=== PATIENT | female | born 1990 | race Two or more races ===

== ENCOUNTER 2024-10-24 11:11 | Emergency (ER) | payer OTHER ==
[~2024-10-24] VITALS: Ht 160 cm; Wt 52.6 kg
[2024-10-24] MEDS: IV NS 0.9% 1,000 ML BAG IV ONE (11:45)
[2024-10-24] MEDS ORDERED: LACTULOSE 10 G/15 ML UDC (PYXIS) ONE (11:46)
[2024-10-24] MEDS: LACTULOSE 10 G/15 ML UDC (PYXIS) PO ONE (11:46)
[2024-10-24 11:54] LABS: CALCIUM, SERUM 9.5 mg/dL (8.5-10.1); CREATININE 0.8 mg/dL (0.6-1.3); PLATELET COUNT (AUTO) 367 K/uL (150-450); RED BLOOD CELL COUNT(AUTO) 4.92 MIL/uL (4.0-5.2); RED CELL DISTRIBUTION WIDTH 19.2 % (11.5-15.0); SODIUM SERUM 136.0 mmol/L (136-145); UREA NITROGEN, BLOOD 10.0 mg/dL (7-18); WHITE BLOOD COUNT (AUTO) 6.3 K/uL (4.3-11.0)
[2024-10-24 12:00] LABS: ASPARTATE AMINOTRANSFERASE 22.0 U/L (15-37); TOTAL PROTEIN, SERUM 8.1 g/dL (6.4-8.2)
[2024-10-24 12:14] LABS: APPEARANCE,URINE CLEAR (CLEAR); BLOOD, URINE 3+ Ery/uL (NEGATIVE); LEUKOCYTE ESTERASE ,URINE 1+ (NEGATIVE); NITRITE, URINE NEGATIVE (NEGATIVE); UGLUCOSE NEGATIVE (NEGATIVE)
[2024-10-24 12:22] LABS: PREGNANCY TEST URINE QUAL NEGATIVE (NEGATIVE)
[2024-10-24 12:24] LABS: ADD URINE CULTURE YES
[2024-10-24] MEDS ORDERED: KETOROLAC TROMETHAMINE INJ 30 MG/ML VIAL ONE (12:37)
[2024-10-24] MEDS: KETOROLAC TROMETHAMINE 15 MG/ML VIAL IV ONE (12:41)
[2024-10-24] MEDS ORDERED: POLY119P PO (13:46)
[2024-10-24 13:59] VITALS: BP 104/75; TEMP 97.8; O2SAT 100
== END 2024-10-24 13:59 | disposition home or self-care (01) ==
LOC: ER 11:14
DX: R10.32 Left lower quadrant pain (principal); F11.10 Opioid abuse, uncomplicated; K59.00 Constipation, unspecified; R11.0 Nausea
CPT/HCPCS: 99285; 74176; 96374; 96361; 85025; 80048; 87086; 83690; 80076; 81001; 36415; 84703 ×2; J1885; J7030; 87186-TC